=== PATIENT | male | born 1955 | race Caucasian/White ===

== ENCOUNTER 2021-06-09 13:39 | Outpatient (CLI) | payer MEDICARE, SELFPAY ==
--- NOTE | ~2021-06-09 | US_ITS ---
EXAMINATION: US carotid duplex BI DATE: 06/09/2021 14:32 INDICATION: Carotid stenosis TECHNIQUE: Grayscale, color Doppler, and pulsed Doppler images of the cervical carotid arteries were obtained. The degree of vessel stenosis is placed in one of the following categories: normal, <50%, 5 0-69%, >=70% but less than near-occlusion, near-occlusion, or total occlusion. Note that percent sten osis relative to normal distal artery lumen diameter is indirectly measured from velocity measurement s as described by Sameer, et al. Radiology 2003; 229:340-346. Notes: Normal: Peak systolic velocity <125 centimeters/sec and no plaque <50%. Peak systolic velocity <125 ( EDV <40; ICA/CCA PSV ratio <2.0; used these factors only a tandem lesions or low cardiac output or co ntralateral disease) 50-69 %: PSV 125-230 (EDV 40-100; ratio 2-4) >= 70% but less than near occlusion: PSV greater than 230 (EDV > 100; ratio> 4.0) Near Occlusion: PSV that is variable; markedly narrowed lumen Occlusion: Absent flow on color/spectral Doppler and no lumen on marcial scale. COMPARISON: None. FINDINGS: RIGHT: The right common carotid artery (CCA) peak systolic velocity (PSV) is 82 cm/s. The right internal car otid artery (ICA) PSV is 176 cm/s. The right ICA end-diastolic velocity (EDV) is 40 cm/s. The right I CA/CCA PSV ratio is 2.1. The external carotid artery (ECA) PSV is 329 cm/s. There is antegrade flow i n the right vertebral artery. LEFT: The left CCA PSV is 52 cm/s. The left ICA PSV is 292 cm/s. The left ICA EDV is 72 cm/s. The left ICA/ CCA PSV ratio is 5.6. The ECA PSV is 156 cm/s. There is antegrade flow in the left vertebral artery. IMPRESSION: 1. 50-69% stenosis in the right internal carotid artery by sonographic criteria. 2. Greater than or equal to 70% stenosis in the left internal carotid artery by sonographic criteria. Reviewed, dictated and finalized at location A. IMPRESSION: 1. 50-69% stenosis in the right internal carotid artery by sonographic criteria . 2. Greater than or equal to 70% stenosis in the left internal carotid artery by sonographic criteria.
== END 2021-06-09 13:40 | disposition home or self-care (01) ==
LOC: ANHIMG 13:51
PROVIDERS: PCP Internal Medicine; Visit Provider Internal Medicine
CPT/HCPCS: 93880

== ENCOUNTER 2022-12-18 15:12 | Outpatient (CLI) | payer MEDICARE, SELFPAY ==
--- NOTE | ~2022-12-18 | CT_ITS ---
EXAMINATION:CT lung screening DATE: 12/18/2022 15:46 INDICATION: Personal history of tobacco dependence. Current smoker with 34 pack year history. TECHNIQUE: Computed tomography (CT) of the chest was performed without intravenous contrast. Automate d exposure control and iterative reconstruction technique were employed. The dose-length product (DLP ) was 154.09 mGy-cm. COMPARISON: None. FINDINGS: There is mild emphysema. There is mild scarring at the lung apices. Calcified right lung no dules and calcified right hilar and mediastinal lymph nodes are consistent with old granulomatous dis ease. There is mild atelectasis in left lower lobe and lingula. No pleural effusion. The heart size i s normal. There are coronary artery calcifications. No pericardial effusion. Calcifications in the li cristian and spleen are consistent with old granulomatous disease. Aortic atherosclerosis is noted. There is mild thoracic spondylosis. There is mild chronic height loss of T5 and T8 vertebral bodies. IMPRESSION: 1. Lung-RADS category 2: Benign appearance or behavior. Continue annual screening with noncontrast lo w-dose chest CT in 12 months. Reviewed, dictated and finalized at location E. IMPRESSION: 1. Lung-RADS category 2: Benign appearance or behavior. Continue annual screeni ng with noncontrast low-dose chest CT in 12 months.
== END 2022-12-18 15:13 | disposition home or self-care (01) ==
PROVIDERS: PCP Internal Medicine; Visit Provider Internal Medicine
DX: Z12.2 Encounter for screening for malignant neoplasm of respiratory organs (principal); Z87.891 Personal history of nicotine dependence
CPT/HCPCS: 71271

== ENCOUNTER 2023-02-18 14:28 | Emergency (ER) | payer MEDICARE, SELFPAY ==
[2023-02-18] VITALS (19 sets, daily range): BP systolic 128–153; BP diastolic 63–91; PULSE 60–72; RESP 7–22; TEMP 36.2; O2SAT 93–99
--- NOTE | ~2023-02-18 | XR_ITS ---
EXAMINATION: XR chest 2V DATE: 02/18/2023 15:26 INDICATION: Generalized weakness TECHNIQUE: PA and lateral views of the chest are obtained. COMPARISON: 12/18/2022 FINDINGS: The lungs are free of acute opacities. No pleural effusion or pneumothorax. The cardiomedia stinal silhouette is normal. There is mild thoracic spondylosis. Calcified pulmonary nodules and calc ified right hilar and mediastinal lymph nodes are consistent with old granulomatous disease. IMPRESSION: 1. No acute cardiopulmonary abnormality. Reviewed, dictated and finalized at location L.
--- NOTE | 2023-02-18 14:34 | ECG_ITS ---
Measurements Intervals [place] Rate: 70 P: 81 NH: 147 QRS: 65 QRSD: 91 T: 49 QT: 373 QTc: 404 Interpretive Statements SINUS RHYTHM BORDERLINE ST ABNORMALITY- ANTEROLAT/INF LEADS BORDERLINE ECG NO PREVIOUS ECG AVAILABLE FOR COMPARISON Electronically Signed On 02-18-2023 15:53:46 CDT by Tae Salazar D.O.
[2023-02-18 14:50] LABS: Basophils Absolute Auto 0.1 K/mm3 (0.0-0.1); Basophils Percent Auto 0.7 % (0.2-1.2); Eosinophils Absolute Auto 0.3 K/mm3 (0-0.3); Eosinophils Percent Auto 2.7 % (0-4.4); Hematocrit 45.7 % (42.0-52.0); Hemoglobin 14.9 g/dL (14.0-18.0); Immature Granulocyte Absolute 0.03 K/mm3 (0.00-0.031); Immature Granulocyte Percent A 0.3 % (0-0.5); Lymphocytes Absolute Auto 2.21 K/mm3 (0.9-3.2); Mean Corpuscular HGB Conc 32.6 g/dl (32-36); Monocytes Percent Auto 11.1 % (2.6-8.5); Neutrophils Absolute Auto 5.6 K/mm3 (1.3-6.7); Neutrophils Percent Auto 61.2 % (45.5-73.1); Platelet Count Result 304 k/mm3 (150-375); Red Blood Count 4.81 M/mm3 (4.6-6.20); Red Cell Distribution Width 14.3 % (11.5-14.5); White Blood Count 9.2 K/mm3 (4.5-10.0)
[2023-02-18 15:02] LABS: Alanine Aminotransferase 23 U/L (6-50); Albumin Level 4.4 g/dL (3.5-5.1); Alkaline Phosphatase 67 U/L (38-126); Anion Gap 7 mmol/L (8-16); Aspartate Amino Transferase 26 U/L (17-59); Bilirubin,Total 0.7 mg/dL (0.2-1.3); Blood Urea Nitrogen 18 mg/dL (9-20); Calcium 9.3 mg/dL (8.4-10.2); Carbon Dioxide 28 mmol/L (22-30); Chloride 98 mmol/L (98-107); Estimated CRCL calculation 60 ml/min; Estimated Glomerular Filt Rate > 60; Glucose 144 mg/dL (65-110); Potassium 3.8 mmol/L (3.4-5.0); Sodium 133 mmol/L (137-145)
--- NOTE | 2023-02-18 17:22 | ED.GENADULT ---
HPI - General Adult General Chief complaint: Weakness Stated complaint: weakness Time Seen by Provider: 02/18/23 17:03 Source: patient Mode of arrival: ambulatory Limitations: no limitations History of Present Illness HPI narrative: 67-year-old male presents today with concerns of chest pain that lasted a couple minutes followed by dizziness. Patient states he was at work lifting heavy objects when the chest pain started. Chest pain was to the center of his chest felt like a pressure. Pain was not radiating down the arm and there was no diaphoresis. Dizziness lasted for about 2 hours. States he was able to drive back to work and then home. He then later decided to lay down for an afternoon nap. Dizziness resolved prior to that. He called his primary care physician today because he had concerns of having a reaction to his new medicine pantoprazole and was encouraged to come to the emergency department for further evaluation. Patient denies any other issues at this time. No other episodes of chest pain or shortness of breath since yesterday. Patient is alert and oriented x3 and neurologically intact at this time. Severity: mild Related Data Allergies Allergy/AdvReac Type Severity Reaction Status Date / Time No Known Allergies Allergy Mild Verified 09/21/09 23:53 Review of Systems Review of Systems: CONSTITUTIONAL: Denies fever, chills, or sweats. EYES: Denies visual changes, redness, or discharge. ENT: Denies rhinorrhea, congestion, sore throat, or otalgia. CARDIOVASCULAR: Denies current chest pain, palpitations, or edema. RESPIRATORY: Denies cough or dyspnea. GASTROINTESTINAL: Denies abdominal pain, nausea, vomiting, or diarrhea. GENITOURINARY: Denies dysuria or hematuria. SKIN: Denies rash or itching. MUSCULOSKELETAL: Denies back pain, joint pain, or myalgia. NEUROLOGIC: Denies current headache, numbness, dizziness, or weakness. PSYCHIATRIC: Denies anxiety or depression. [facility] Family History Family History (Updated 07/04/18 @ 12:22 by DOCTOR UNKNOWN) Father Family history of malignant neoplasm Mother Family history of congestive heart failure Other Hypertension Social History Social History Smoking status: Current every day smoker Alcohol intake: current Exam Narrative: GENERAL: Well-appearing, well-nourished, and in no acute distress. HEAD: Normocephalic, atraumatic. EYES: PERRLA and EOMI. NECK: Supple. No adenopathy or masses. CHEST: Clear to auscultation. No respiratory distress. No wheezes rales or rhonchi HEART: Regular rate and rhythm. No murmur heard. Normal peripheral pulses. ABDOMEN: Soft, nontender, nondistended, normal active bowel sounds. EXTREMITIES: Normal range of motion. No edema. SKIN: Warm, dry, no rash. NEURO: No focal deficits. Alert and oriented x3. PSYCH: Normal mood and affect. Course Course Emergency Course: Patient updated on all labs. Neurologically he is intact and is had no other symptoms since yesterday. He is aware that he will be discharged home with plan follow-up with primary care and to come back with any new or worsening concerns. Vital Signs Vital signs: Vital Signs Temperature 97.2 F L 02/18/23 14:31 Pulse Rate 72 02/18/23 14:31 Respiratory Rate 16 02/18/23 14:31 Blood Pressure 149/63 H 02/18/23 14:31 Pulse Oximetry 97 02/18/23 14:31 Oxygen Delivery Room Air 02/18/23 14:31 Temperature 97.2 F L 02/18/23 14:31 Pulse Rate 70 02/18/23 18:16 Respiratory Rate 18 02/18/23 18:16 Blood Pressure 131/91 H 02/18/23 18:15 Pulse Oximetry 94 02/18/23 18:16 Oxygen Delivery Room Air 02/18/23 14:31 Medical Decision Making MDM Narrative Medical decision making narrative: 67-year-old male HPI as noted. Differentials noted below. Work-up to include CBC, CMP, troponin, EKG, chest x-ray. CBC without any concerning findings CMP did show sodium of 133 and a glucose of 144 nothing else conc
[2023-02-18] MEDS: SODIUM CHLORIDE 0.9% IV 1,000 ML 999 ML IV CONT (17:24)
[2023-02-18 17:47] LABS: Troponin I < 0.012 ng/mL (0.000-0.034)
== END 2023-02-18 19:29 | disposition home or self-care (01) ==
PROVIDERS: Emergency Medicine; Emergency Provider Nurse Practitioner Family; PCP Internal Medicine
DX: R42 Dizziness and giddiness (principal); R07.9 Chest pain, unspecified; F17.200 Nicotine dependence, unspecified, uncomplicated
CPT/HCPCS: 36415; 71046; 80053; 84484; 85025; 93005; 96360; 99284; J7030

== ENCOUNTER 2023-02-22 11:00 | Outpatient (CLI) | payer MEDICARE, SELFPAY ==
--- NOTE | ~2023-02-22 | US_ITS ---
EXAMINATION: US carotid duplex BI DATE: 02/22/2023 11:51 INDICATION: Carotid artery stenosis. TECHNIQUE: Grayscale, color Doppler, and pulsed Doppler images of the cervical carotid arteries were obtained. The degree of vessel stenosis is placed in one of the following categories: normal, <50%, 5 0-69%, >=70% but less than near-occlusion, near-occlusion, or total occlusion. Note that percent sten osis relative to normal distal artery lumen diameter is indirectly measured from velocity measurement s as described by Sameer, et al. Radiology 2003; 229:340-346. COMPARISON: Ultrasound 06/09/2021 FINDINGS: RIGHT: The right common carotid artery (CCA) peak systolic velocity (PSV) is 93 cm/s. The right internal car otid artery (ICA) PSV is 139 cm/s. The right ICA end-diastolic velocity (EDV) is 23 cm/s. The right I CA/CCA PSV ratio is 1.5. Grayscale and color Doppler images yield an estimate of >=50% diameter reduc tion from plaque in the ICA. There is antegrade flow in the right vertebral artery. LEFT: The left CCA PSV is 118 cm/s. The left ICA PSV is 166 cm/s. The left ICA EDV is 46 cm/s. The left ICA /CCA PSV ratio is 1.4. Grayscale and color Doppler images yield an estimate of >=50% diameter reducti on from plaque in the ICA. There is antegrade flow in the left vertebral artery. IMPRESSION: 1. 50-69% stenosis in the right internal carotid artery. 2. 50-69% stenosis in the left internal carotid artery. Reviewed, dictated and finalized at location A.
== END 2023-02-22 11:01 | disposition home or self-care (01) ==
PROVIDERS: PCP Internal Medicine; Visit Provider Internal Medicine
DX: I65.23 Occlusion and stenosis of bilateral carotid arteries (principal)
CPT/HCPCS: 93880

== ENCOUNTER 2023-08-16 10:04 | Outpatient (CLI) | payer MEDICARE, SELFPAY ==
--- NOTE | 2023-08-16 12:53 | P.PCNPFT_ITS ---
PFT Procedure Performed PFT Procedure Performed Plethysmography (Lung Vol) Diffusing Cap (DLCO) Flow Vol Loop Spirometry w/o Bronchodil PFT Interpretation This is a pulmonary function test with spirometry, plethysmography and diffusing capacity. The test was performed and results interpreted in accordance with the 2019 and 2005 ATS/ERS Task Force guidelines respectively using the Global Lung Function Initiative-2012 reference equations. Patient demonstrated good effort and cooperation. Reproducibility criteria were met. The quality of the spirometry maneuver was Grade A. Findings: Spirometry: There is decreased maximal expiratory airflow at all lung volumes. The contour the inspiratory flow tracing is normal. The FVC is 3.38 L, 77% predicted. The FEV1 is 1.34 L, 40% predicted. The FEV1: FVC ratio is 40%. Plethysmography: The total lung capacity is 6.78 L, 96% predicted. The functio nal residual capacity is 4.56 L, 123% predicted. The residual volume is 3.40 L, 142% predicted. The residual volume: Total lung capacity ratio is 50%. Diffusing capacity: The diffusing capacity unadjusted for hemoglobin and carboxyhemoglobin is 11.9, 44% predicted. The diffusing capacity adjusted for alveolar volume is 2.57, 64% predicted. Impression: There is a severe obstructive abnormality. The increase in residual volume to total lung volume ratio is consistent with hyperinflation from an obstructive abnormality. The diffusing capacity unadjusted for hemoglobin and carboxyhemoglobin is moderately decreased and remains mildly decreased when adjusted for alveolar volume. There are no prior studies for comparison
== END 2023-08-16 10:05 | disposition home or self-care (01) ==
LOC: ANHPFT 10:05
PROVIDERS: PCP Internal Medicine; Visit Provider Internal Medicine
DX: R06.00 Dyspnea, unspecified (principal); R94.2 Abnormal results of pulmonary function studies
CPT/HCPCS: 94375; 94726; 94729

== ENCOUNTER 2023-09-30 12:36 | Inpatient (IN) | payer MEDICARE, SELFPAY ==
[2023-09-30] VITALS (13 sets, daily range): BP systolic 104–156; BP diastolic 64–77; PULSE 67–100; RESP 16–24; TEMP 35.6–36.4; O2SAT 70–100
--- NOTE | ~2023-09-30 | XR_ITS ---
EXAMINATION: XR chest ET placement, XR abdomen gastric tube insert DATE: 09/30/2023 15:40 INDICATION: Endotracheal tube placement. Orogastric tube insertion. TECHNIQUE: 1. Portable supine AP view of the chest was obtained on 2 radiographs. 2. Portable AP view of the abdomen and lower chest was obtained on a single radiograph. COMPARISON: Chest radiograph dated 09/30/23 FINDINGS: Chest : Endotracheal tube tip just below level of the thoracic inlet, 8.9 cm above the michael. Diffuse ground glass opacities and increased interstitial pattern throughout both lungs with right perihilar predomi nance. There also peripheral Rusty B-lines predominantly along the lateral right mid and lower lung zones consistent with mild moderate right-sided predominant pulmonary edema. Blunting at the left cos tophrenic angle which appears to correspond to some pleural-parenchymal scarring on the prior CT. The re is also a unilateral small calcified pleural plaque at the posterior left lower lobe which suggest s disruption sequela of a chronic exudative effusion of indeterminate etiology. The cardiomediastinal silhouette is normal. Abdomen: Nasogastric tube tip in proximal side port in the body of the stomach. There are some gas and stool i n the visualized transverse colon. No dilated loops of gas-filled bowel in the visualized abdomen. IMPRESSION: 1. Endotracheal tube tip 8.9 cm above the michael. Recommend advancement by 6 cm. 2. Nasogastric tube tip in proximal side port in the body of the stomach. 3. Somewhat asymmetric mild left-sided and moderate right-sided diffuse pulmonary edema. Reviewed, dictated and finalized at location A. TRICIAN DECK IMPRESSION: 1. Endotracheal tube tip 8.9 cm above the michael. Recommend advancement by 6 cm . 2. Nasogastric tube tip in proximal side port in the body of the stomach. 3. Somewhat asymmetric mild left-sided and moderate right-sided diffuse pulmona ry edema.
--- NOTE | ~2023-09-30 | CT_ITS ---
EXAMINATION: CTA chest DATE: 09/30/2023 13:11 INDICATION: Chest pain TECHNIQUE: Computed tomographic angiography (CTA) of the chest was performed without and with 100 mL Omnipaque-350 intravenous contrast. Volume-rendered 3D-reconstructions of the aorta and large arterie s were constructed by the technologist on a separate workstation. Automated exposure control and iter ative reconstruction technique were employed. The dose-length product was 849.92 mGy-cm. COMPARISON: None. FINDINGS: Mild biapical pleural-parenchymal scarring. Mild emphysema. There are groundglass opacities with mini mal amount of associated smooth septal line thickening in both lungs most prominent in the dependent aspect of the right lower lobe and to lesser degree in the dependent aspect of the left lower and elisabet ateral upper lobes and more anteriorly right middle lobe and would favor mild pulmonary edema over pn eumonia or other chronic interstitial lung disease. No pleural effusion. Calcified nodules in the rig ht lung and calcified right hilar lymph nodes consistent with old granulomatous disease. Heart size i s normal. Scattered atherosclerotic coronary artery calcifications. No pericardial effusion. Thoracic aorta and the great vessels arising from the arch are normal in caliber with scattered nonhemodynami cale significant atherosclerotic plaque and no dissection. There is poor contrast opacification of t he pulmonary arteries with no evident pulmonary embolism through at least the lobar pulmonary arterie s. No pathologically enlarged thoracic lymphadenopathy. Multiple hepatic and splenic calcifications c onsistent with old granulomatous disease. There is calcified atherosclerosis of the aorta and many of the other arteries. Visualized upper abdomen is otherwise unremarkable. Mild thoracic spondylosis wi th chronic appearing mild compression fractures with superior endplate Schmorl's nodes at T5 and T8. IMPRESSION: 1. Dependent predominant opacities in both lungs most consistent with mild pulmonary edema. Pneumonia or interstitial lung disease considered significantly less likely. 2. Atherosclerotic aorta and great vessels arising from the arch with no aneurysm or dissection. Reviewed, dictated and finalized at location A. S REVIEW NURSE IMPRESSION: 1. Dependent predominant opacities in both lungs most consistent with mild pulm onary edema. Pneumonia or interstitial lung disease considered significantly le ss likely. 2. Atherosclerotic aorta and great vessels arising from the arch with no aneury sm or dissection.
--- NOTE | 2023-09-30 12:41 | ECG_ITS ---
Measurements Intervals [place] Rate: 91 P: 75 NH: 159 QRS: 18 QRSD: 87 T: 47 QT: 333 QTc: 410 Interpretive Statements SINUS RHYTHM POSSIBLE LEFT ATRIAL ENLARGEMENT [-0.1mV P WAVE IN V1/V2] SEPTAL MYOCARDIAL INFARCTION , OF INDETERMINATE AGE [40+ ms Q WAVE IN V1/V2] ST ELEVATION IN AVR, V1 AND V2, CONSIDER ISCHEMIA MARKED ST DEPRESSION, CONSIDER SUBENDOCARDIAL INJURY [0.2+ mV ST DEPRESSION] COMPARED TO ECG 02/18/2023 14:37:32 ST CHANGES NOW PRESENT Electronically Signed On 09-30-2023 13:33:38 TESTING DIRECTOR by Shannon Davis M.D.
--- NOTE | 2023-09-30 12:45 | ED.CHESTPAIN ---
HPI - Chest Pain General Chief Complaint: Chest Pain Stated Complaint: chest pain/dyspnea Time Seen by Provider: 09/30/23 12:45 History of Present Illness HPI narrative: patient is a 68-year-old male who presents ER with chest pain and shortness of breath. Chest pain began last night and was aching in his chest moving in between his shoulder blades into his left shoulder. Is been more constant today. In route he has started becoming more short of breath and developed hypoxia for EMS. Denies history of MT in the past. No alleviating factors for his discomfort. STEMI activated upon receipt of EKG. Related Data Home Medications Medication Instructions Recorded Confirmed amlodipine 10 mg tablet 10 mg PO DAILY 09/30/23 09/30/23 lisinopril 40 mg tablet 40 mg PO DAILY 09/30/23 09/30/23 metoprolol succinate 100 mg 100 mg PO DAILY 09/30/23 09/30/23 tablet,extended release 24 hr pantoprazole 40 mg tablet,delayed 40 mg PO BID 09/30/23 09/30/23 release Allergies Allergy/AdvReac Type Severity Reaction Status Date / Time No Known Allergies Allergy Mild Verified 09/30/23 13:42 Review of Systems Review of Systems: Limited due to severity of patient's clinical illness and then progression to endotracheal intubation. ROS unobtainable: Yes unobtainable due to endotracheal tube Constitutional: Constitutional: Reports fatigue Cardiovascular: Cardiovascular: Reports chest pain Respiratory: Respiratory: Denies cough, Reports dyspnea and Denies wheezing PMFSH Past Medical History Medical History (Updated 09/30/23 @ 18:52 by Clif Siegel MD) COPD (chronic obstructive pulmonary disease) Essential hypertension Mixed hyperlipidemia Family History Family History Father Family history of malignant neoplasm Mother Family history of congestive heart failure Other Hypertension Social History Social History Smoking packs per day: 0.25 Smoking cigarettes per day: 5.0 Smoking status: Light tobacco smoker Alcohol intake: current Substance use: never Spiritual care concerns: No Exam Narrative: GENERAL: Ill-appearing, well-nourished, and in mopderat distress. HEAD: Normocephalic, atraumatic. EYES: PERRL and EOMI. ENT: Mucous membranes moist. NECK: Supple. CHEST: Clear to auscultation. No respiratory distress. HEART: Regular rate and rhythm. Normal peripheral pulses. ABDOMEN: Soft, nontender, nondistended. EXTREMITIES: Normal range of motion. No edema. SKIN: Warm, dry, dusky skin color. NEURO: Alert and oriented x3. PSYCH: Normal mood and affect. Course Course Emergency Course: STEMI activated. Patient with persistent hypoxia. Will go to CT for emergent CTA they ordered rule out dissection. We will then determine should if he needs intubation as he is oriented x3 and does not seem to be in true respiratory distress at this time. 1310: Patient very short of breath during CT scan in the patient room. He is reporting increased shortness of breath. He will be intubated prior to going to the recyclable materials collector. Vital Signs Vital signs: Vital Signs Temperature 97.5 F L 09/30/23 12:34 Pulse Rate 93 09/30/23 12:34 Respiratory Rate 20 09/30/23 12:34 Blood Pressure 104/66 09/30/23 12:34 Pulse Oximetry 70 L 09/30/23 12:34 Oxygen Delivery Room Air 09/30/23 12:34 Temperature 96.1 F L 09/30/23 16:00 Pulse Rate 67 09/30/23 18:20 Respiratory Rate 21 H 09/30/23 18:20 Blood Pressure 135/70 09/30/23 18:20 Pulse Oximetry 96 09/30/23 18:20 Oxygen Delivery Mechanical Ventilation 09/30/23 18:00 Oxygen Flow Rate 2 09/30/23 12:40 Fraction of Inspired Oxygen 80 09/30/23 16:48 Procedures Intubation Intubation #1: Intubation Date: 09/30/23 Intubation Time: 13:15 Time out performed: Yes sedative: Etomi
--- NOTE | 2023-09-30 12:47 | PC.NURSE ---
STEMI DECLARED BY DR CURTIS. DR TO BEDSIDE TO EVAL PT
--- NOTE | 2023-09-30 12:47 | PC.NURSE ---
[address] Davis notified [address] [place] 1248 [facility] notified
--- NOTE | 2023-09-30 12:50 | PC.NURSE ---
PT TAKEN EMERGENTLY TO CT AND BACK. DR CURTIS NOW WANTS TO INTUBATE PT PRIOR TO CHAIR INSPECTOR AND LEVELER DUE TO RESP STATUS. SETTING UP EQUIPMENT NOW.
[2023-09-30 13:02] LABS: Basophils Absolute Auto 0.1 K/mm3 (0.0-0.1); Basophils Percent Auto 0.6 % (0.2-1.2); Eosinophils Percent Auto 0.5 % (0-4.4); Hematocrit 40.1 % (42.0-52.0); Hemoglobin 13.1 g/dL (14.0-18.0); Immature Granulocyte Absolute 0.06 K/mm3 (0.00-0.031); Immature Granulocyte Percent A 0.7 % (0-0.5); Lymphocytes Absolute Auto 1.13 K/mm3 (0.9-3.2); Mean Corpuscular HGB Conc 32.7 g/dl (32-36); Mean Corpuscular Hemoglobin 30.8 pg (26-34); Mean Corpuscular Volume 94.1 fl (80-100); Mean Platelet Volume 10.1 fl (7.4-10.4); Monocytes Absolute Auto 1.5 K/mm3 (0.1-0.6); Monocytes Percent Auto 18.9 % (2.6-8.5); Neutrophils Absolute Auto 5.3 K/mm3 (1.3-6.7); Neutrophils Percent Auto 65.3 % (45.5-73.1); Platelet Count Result 240 k/mm3 (150-375); Red Blood Count 4.26 M/mm3 (4.6-6.20); White Blood Count 8.1 K/mm3 (4.5-10.0)
[2023-09-30 13:02] LABS: Estimated CRCL calculation 50 ml/min; Estimated Glomerular Filt Rate 55
--- NOTE | 2023-09-30 13:10 | PC.NURSE ---
DR CURTIS, RT AND RN X2 AT BEDSIDE FOR INTUBATION.
[2023-09-30 13:12] LABS: Alanine Aminotransferase 21 U/L (6-50); Albumin Level 4.3 g/dL (3.5-5.1); Alkaline Phosphatase 67 U/L (38-126); Anion Gap 10 mmol/L (8-16); Aspartate Amino Transferase 41 U/L (17-59); Bilirubin,Total 0.4 mg/dL (0.2-1.3); Blood Urea Nitrogen 20 mg/dL (9-20); Calcium 9.2 mg/dL (8.4-10.2); Carbon Dioxide 21 mmol/L (22-30); Chloride 94 mmol/L (98-107); Estimated CRCL calculation 54 ml/min; Estimated Glomerular Filt Rate 60; Glucose 114 mg/dL (65-110); Lipase 103 U/L (23-300); Potassium 4.3 mmol/L (3.4-5.0); Sodium 125 mmol/L (137-145)
--- NOTE | 2023-09-30 13:14 | PC.NURSE ---
30MG ETOMIDATE GIVEN IVP TO L HAND 100MG SUCC GIVEN IVP TO L HAND
[2023-09-30 13:16] LABS: INR 0.9; Prothrombin Time 12.9 Seconds (11.1-14.7)
--- NOTE | 2023-09-30 13:16 | PC.NURSE ---
7.5 ETT 21@LIP +COLOR CHANGE, BILATERAL BREATH SOUNDS NOTED.
[2023-09-30] MEDS: RAPID SEQUENCE INTUBATION KIT 1 EACH (13:18)
[2023-09-30 13:20] LABS: Cholesterol 171 mg/dL (0-200); HDL Direct 57 mg/dL; Triglycerides 105 mg/dL (<150)
[2023-09-30] MEDS: PROPOFOL IV EMULSION 100 ML 2.64 MG IV CONT (13:20)
[2023-09-30 13:31] LABS: LDL Cholesterol Direct 53 mg/dL
--- NOTE | 2023-09-30 13:37 | SUR.OPER ---
critical troponin of 1.[address] cochran at 1335. no new orders at this time
[2023-09-30 13:49] LABS: Alveolar/Arterial O2 Gradient 622.8 mmHg; Base Excess ABG -6.8 mEq/l (+/-2.0); Carboxyhemoglobin 1.6 % THb (0-2.0); Fractional Inspired Oxygen 100 %; Methemoglobin ABG 0.2 %THb (0-1.5); Oxygen Content ABG 15.9 %vol (16.0-22.0); PCO2 ABG 39.1 mmHg (35.0-45.0); PO2 ABG 51.1 mmHg (80.0-100.0); PO2 FiO2 Ratio Arterial Blood 0.51 %; Reduced Hemoglobin 17.8 %THb (0-5.0); Total Hemoglobin 14.1 g/dL (12.0-18.0); pH ABG 7.304 (7.350-7.450)
[2023-09-30 13:50] LABS: Triglycerides 113 mg/dL (<150)
[2023-09-30 13:50] LABS: Oxygen Saturation ABG 82.9 % (95.0-100.0)
[2023-09-30 13:51] LABS: Device NON-REBREATHER MASK; Modified Allen's Test Pass; Oxyhemoglobin 80.4 % THb (90.0-100.0); Site Drawn RIGHT RADIAL
[2023-09-30] MEDS: HEPARIN SOD/D5W 100 UNITS/ML 25,000 UNITS/250 ML BAG 12 UNITS IV CONT (14:00)
--- NOTE | 2023-09-30 14:35 | PCCCNOTE ---
STEMI called in ER. No family present at this time. Call placed to sister Alida who, as well as pt's son, are on their way here. They were met in the lobby and taken to the ICU waiting room. Nuclear Medicine Tech has spoke to Alida and told her pt will need to be transferred to [facility] for treatment. Staff aware family is here.
--- NOTE | 2023-09-30 14:40 | PM.IMHP ---
H&P: HPI History of Present Illness Date/Time: 09/30/23 14:40 Chief Complaint: Chest pain Narrative: Patient is a 68 year old male with tobacco dependence who presented with chest pain ongoing since yesterday, along with shortness of breath. EKG obtained upon ER arrival showed ST elevation in AVR and V1 with diffuse ST depressions. porcelain enamel laborer was activated. Patient was noted to be quite hypoxic into the 80s. CTA negative for PE or dissection. Given ongoing chest pain and EKG findings, we decided to urgently take patient to laborer/key man. Patient had difficulty laying flat for CT scan due to shortness of breath, so he was electively intubated for cardiac cath. Additional history obtained from the patient's sister and the patient's son after cardiac cath: Smoking since his teens. Has hypertension, on Amlodipine, Lisinopril, Metoprolol. Has been having issues with acid reflux the past few months. PFTs done in August 2023 here at [place] show severe obstructive abnormality. The increase in residual volume to total lung volume ratio is consistent with hyperinflation from an obstructive abnormality. The diffusing capacity unadjusted for hemoglobin and carboxyhemoglobin is moderately decreased and remains mildly decreased when adjusted for alveolar volume. Prior EKG in our system from February 2023 shows sinus rhythm, borderline ST abnormality in the anterolateral/inferior leads. Review of Systems Review of Systems: All systems reviewed & are unremarkable except as noted in HPI and below (HPI) [facility] Family History Family History Father Family history of malignant neoplasm Mother Family history of congestive heart failure Other Hypertension Social History Social History Smoking packs per day: 0.25 Smoking cigarettes per day: 5.0 Smoking status: Light tobacco smoker Alcohol intake: current Substance use: never Spiritual care concerns: No Meds Home Medications and Allergies Home Medications Medication Instructions Recorded Confirmed Type amlodipine 10 mg tablet 10 mg PO DAILY 09/30/23 09/30/23 History lisinopril 40 mg tablet 40 mg PO DAILY 09/30/23 09/30/23 History metoprolol succinate 100 mg 100 mg PO DAILY 09/30/23 09/30/23 History tablet,extended release 24 hr pantoprazole 40 mg tablet,delayed 40 mg PO BID 09/30/23 09/30/23 History release Allergies Allergy/AdvReac Type Severity Reaction Status Date / Time No Known Allergies Allergy Mild Verified 09/30/23 13:42 Vital Signs Vital Signs - 24 hr 09/30/23 12:34 09/30/23 12:37 09/30/23 12:40 Temperature 36.4 C L Pulse Rate 93 Respiratory Rate 20 Blood Pressure 104/66 Pulse Oximetry 70 L 94 94 Oxygen Delivery Room Air Nasal Cannula Nasal Cannula Oxygen Flow Rate 2 2 09/30/23 13:20 09/30/23 13:08 Temperature Pulse Rate 90 100 Respiratory Rate 16 16 Blood Pressure 108/64 Pulse Oximetry 98 Oxygen Delivery Oxygen Flow Rate Exam Const: General: in distress mild HENMT: Mouth: Yes moist mucous membranes Eyes: General: appearance normal, both eyes and all related structures Sclera: sclerae normal Resp: Other: Mildly labored breathing Cardio: Rate: tachycardic Rhythm: regular rhythm Heart sounds: no murmurs Neuro: Speech: normal speech Psych: Mental Status: mental status grossly normal Affect: normal affect H&P: Results Labs Labs: Short CBC 09/30/23 Range/Units 12:54 WBC 8.1 (4.5-10.0) K/mm3 Hgb 13.1 L (14.0-18.0) g/dL Hct 40.1 L (42.0-52.0) % Plt Count 240 (150-375) k/mm3 [facility] 09/30/23 09/30/23 12:53 13:01 Sodium 125 L Potassium 4.3 Chloride 94 L Carbon Dioxide 21 L BUN 20 Creatinine 1.20 1.30 Glucose 114 H Calcium 9.2 Cardiac Enzymes 09/30/23 Range/Units 12:53 Troponin I 1.720 H* (0.000-0.034) n
--- NOTE | 2023-09-30 15:00 | ADMGEN ---
This patient, Tremaine Flores, was admitted to Intensive Care Unit-3. Patient/family oriented to hospital policies and general routines including ID bracelet, bed and alarms, visiting hours, pain management, procedures, bathroom and other care routines, personal items, smoking policy, room service/diet, and visiting hours. Information on how to activate the Rapid Response Team has been discussed. Patient/Family are encouraged to report perceived risks to care and to ask questions if they do not understand what they are told or what they should do.
--- NOTE | 2023-09-30 15:23 | WPDCNINT ---
Assessment and Plan Assessment and plan (1) ST elevation (STEMI) myocardial infarction: Code(s): I21.3 - ST elevation (STEMI) myocardial infarction of unspecified site Status: Acute Assessment and Plan: 09/30: Patient presented with chest pain that started yesterday, associated nausea and shortness of breath. EKG showed ST elevations in AVR and V1 with diffuse ST depressions. Code STEMI was activated. Patient was very hypoxic in the 70% and 80% range, CTA was negative for PE or dissection. Patient was taken to the cardiac laboratory apparatus glass blower where was found to have a heavily diseased left main. No intervention was performed, intra-aortic balloon pump was inserted and patient will be transferred to a tertiary care center for cardiothoracic evaluation -continue intra-aortic balloon pump -continue heparin infusion (2) Acute respiratory failure: Code(s): J96.00 - Acute respiratory failure, unspecified whether with hypoxia or hypercapnia Status: Acute Assessment and Plan: Acute respiratory failure likely related to pulmonary edema as seen on CTA -09/30: Intubated in the ER -continue CMV mode of ventilation, currently on peep of 5 and 100% FiO2. Will increase PEEP to 8 -will check post intubation gases and will adjust ventilator accordingly -will check chest x-ray post intubation for ET tube placement -will start bronchodilators -sedated with fentanyl and Versed infusion, maintain RASS of 0 to -2 (3) Shock: Code(s): R57.9 - Shock, unspecified Status: Acute Assessment and Plan: Shock aside likely related to acute myocardial infarction -currently on Levophed, will maintain MAP > 65 mmHg for adequate end organ perfusion -patient also has pulmonary edema on chest CTA -cannot diurese patient due to hypotension and on pressors -will increase PEEP on the mechanical ventilator to 8 -intra-aortic balloon pump to assist with blood pressures in shock -cardiology following (4) Essential hypertension: Code(s): I10 - Essential (primary) hypertension Status: Acute Assessment and Plan: Patient history of essential hypertension, currently on vasopressors, (5) Tobacco use: Code(s): Z72.0 - Tobacco use Status: Acute Assessment and Plan: History of tobacco use, will have to assessment counselor him on tobacco cessation once he is extubated (6) COPD (chronic obstructive pulmonary disease): Code(s): J44.9 - Chronic obstructive pulmonary disease, unspecified Status: Acute Assessment and Plan: Continue bronchodilators for now. He is currently on mechanical vent Plan DVT prophylaxis: Heparin infusion Stress ulcer prophylaxis: Protonix Nutrition: NPO Code Status: Full code Critical Care Time Spent: 47 minutes Due to a high probability of clinically significant, life threatening deterioration, the patient required my highest level of preparedness to intervene emergently and I personally spent this critical care time directly and personally managing the patient. This critical care time included obtaining a history; examining the patient; pulse oximetry; ordering and review of studies; arranging urgent treatment with development of a management plan; evaluation of patient's response to treatment; frequent reassessment; and discussions with other providers. It was exclusive of separately billable procedures and treating other patients and teaching time. Please see Assessment and Plan section and the rest of the note for further information on patient assessment and treatment This dictation may have been done utilizing a voice recognition system. Attempts have been made to correct errors. However, there may be uncorrected grammatical, spelling, and recognitions errors present. Cold Rolling Machine Setter Consult Note Consult date: 09/30/23 Reason for consult: ST-elevation AR status post coronary angiogram, heavily diseased left main coronary artery , no intervention was performed,
[2023-09-30] MEDS: fentaNYL CITRATE INJ (*CRX) 100 MCG/2 ML VIAL 50 MCG IV PUSH (15:51)
[2023-09-30] MEDS: MIDAZOLAM 100MG/NS 100ML(*CRX) 100 MG/100 ML BAG IV CONT (15:52)
[2023-09-30] MEDS: FENTANYL 2,500MCG/NS250ML(*CRX 2,500 MCG/250 ML BAG 12.5 MCG IV CONT (15:53)
[2023-09-30] MEDS: PANTOPRAZOLE SODIUM IV 40 MG VIAL IV PUSH (16:04)
--- NOTE | 2023-09-30 16:08 | ECG_ITS ---
Measurements Intervals [place] Rate: 70 P: 84 OK: 178 QRS: 57 QRSD: 86 T: 73 QT: 391 QTc: 423 Interpretive Statements SINUS RHYTHM POSSIBLE LEFT ATRIAL ENLARGEMENT [-0.1mV P WAVE IN V1/V2] PREVIOUS ANTERIOR RI NONSPECIFIC ST SEGMENT ABNORMALITY ABNORMAL ECG COMPARED TO ECG 09/30/2023 12:42:[address] SEGMENT DEPRESSION IS SIGNIFICANTLY IMPROVED, LOSS OF R-WAVE VOLTAGE V3 AND V4 Electronically Signed On 10-01-2023 12:22:28 TILE MECHANIC HELPER by Steve Aguilar M.D.
[2023-09-30 16:13] LABS: Lactic Acid Reflex 1.2 mmol/L (0.7-2.0)
[2023-09-30 16:20] LABS: Alveolar/Arterial O2 Gradient 432.6 mmHg; Fractional Inspired Oxygen 100 %; HCO3 ABG 20.6 mEq/l (22.0-26.0); Oxygen Content ABG 19.8 %vol (16.0-22.0); Oxygen Saturation ABG 99.3 % (95.0-100.0); Oxyhemoglobin 97.9 % THb (90.0-100.0); PCO2 ABG 49.4 mmHg (35.0-45.0); PO2 FiO2 Ratio Arterial Blood 2.31 %
[2023-09-30 16:23] LABS: Device VENTILATOR; Site Drawn LEFT RADIAL; pH ABG 7.238 (7.350-7.450)
[2023-09-30 16:24] LABS: Arterial Blood Gas PEEP 5 cmH2O; Arterial Blood Gas Tidal Volume 500 ml; Arterial Blood Gas Vent Mode CMV; Arterial Blood Gas Ventilator rate 18 /MIN
[2023-09-30 16:37] LABS: Influenza A QL RT-PCR Negative (Negative); Influenza B QL RT-PCR Negative (Negative); RSV RNA, RT-PCR Negative (Negative); SARS-CoV-2 RNA PCR Positive (Negative)
--- NOTE | 2023-09-30 16:37 | WPDMODSED ---
Moderate Sedation Note-Pt Data Patient Data Diagnosis: Acute coronary syndrome Present Complaint: Acute coronary syndrome Procedure to be performed/Plan: Coronary angiography, left heart cath, +/- PCI Allergies Allergy/AdvReac Type Severity Reaction Status Date / Time No Known Allergies Allergy Mild Verified 09/30/23 13:42 Home Medications Medication Instructions Recorded Confirmed Type amlodipine 10 mg tablet 10 mg PO DAILY 09/30/23 09/30/23 History lisinopril 40 mg tablet 40 mg PO DAILY 09/30/23 09/30/23 History metoprolol succinate 100 mg 100 mg PO DAILY 09/30/23 09/30/23 History tablet,extended release 24 hr pantoprazole 40 mg tablet,delayed 40 mg PO BID 09/30/23 09/30/23 History release Current Medications: Active Medications Albuterol (Albuterol Sulfate Neb 2.5 Mg/3 Ml Inh) 2.5 mg INHALATION Q6HRT ABDIFATAH Aspirin (Aspirin 81 Mg Enteric Tablet) 81 mg PO QAM ABDIFATAH Atorvastatin Calcium (Atorvastatin 40 Mg Tablet) 80 mg PO DAILY [facility] Heparin Sodium (Porcine) (Heparin Sodium 5,000 Units/Ml Vial) 4,000 units IV PUSH PRN PRN PRN Reason: aPTT less than 55 seconds Heparin Sodium (Porcine) (Heparin Sodium 5,000 Units/Ml Vial) 3,000 units IV PUSH PRN PRN PRN Reason: aPTT 55 - 70 seconds Propofol (Diprivan) 100 mls @ 2.637 mls/hr IV CONT .[id number] [facility]; Protocol Stop: 10/02/23 03:12 Last Admin: 09/30/23 13:20 Dose: 5 mcg/kg/min, 2.64 mls/hr Fentanyl Citrate (Fentanyl 2,500 Mcg/Ns 250 Ml) 2,500 mcg in 250 mls @ 12.5 mls/hr IV CONT .Q20H ABDIFATAH; Protocol Last Admin: 09/30/23 15:53 Dose: 125 mcg/hr, 12.5 mls/hr Midazolam HCl (Versed 100 Mg/Ns 100 Ml) 100 mg in 100 mls @ 5 mls/hr IV CONT .Q20H ABDIFATAH; Protocol Last Admin: 09/30/23 15:52 Dose: 5 mg/hr, 5 mls/hr Propofol (Diprivan) 100 mls @ 26.37 mls/hr IV CONT .Q3H48M ABDIFATAH; Protocol Heparin Sodium/Dextrose (Heparin Sodium/D5w 100 Units/Ml) 25,000 units in 250 mls @ 12 mls/hr IV CONT .H43N76M ABDIFATAH; Protocol Norepinephrine Bitartrate (Levophed 8 Mg/D5w 250 Ml) 8 mg in 250 mls @ 22.5 mls/hr IV CONT .Q11H7M ABDIFATAH; Protocol Ipratropium [place] (Ipratropium Br 0.02% Inh Soln 0.5 Mg/2.5 Ml Vial) 0.5 mg INHALATION Q6HRT ABDIFATAH Multi-Ingred Cream/Lotion/Oil/Oint (Mineral Oil/White Petrolatum Ointment) 1 applic EACH EYE Q12HR ABDIFATAH Pantoprazole Sodium (Pantoprazole Sodium Iv 40 Mg Vial) 40 mg IV PUSH QAM ABDIFATAH Perflutren Lipid Microsphere (Perflutren Lipid Microspheres 1.5 Ml Vial Diluted To 10 Ml Total Volume) 0 ml IV PUSH ONCE PRN; Protocol PRN Reason: adequate visualization Stop: 10/03/23 16:19 Sodium Chloride (Central Line Flush) 10 ml IV PUSH Q8HR ABDIFATAH Sodium Chloride (Central Line Flush) 20 ml IV PUSH PRN PRN PRN Reason: after blood draws Sedation/Anesthesia: No previous sedation/anesthesia problems (including family history). [facility] Family History Family History Father Family history of malignant neoplasm Mother Family history of congestive heart failure Other Hypertension Social History Social History Smoking packs per day: 0.25 Smoking cigarettes per day: 5.0 Smoking status: Light tobacco smoker Alcohol intake: current Substance use: never Spiritual care concerns: No Mod Sed Physical Exam Physical Exam Pre Procedural Exam: Normal: Heart Rate, Heart Rhythm and Skin and Variation: Appearance (Intubated ) and Neuro Exam (Sedated) Hours since solid foods: 0 Hours since liquid intake: 0 Mallampati Classification: class III Internal Medicine - PN: Obj Da Vital Signs Vital Signs: Vital Signs - 24 hr 09/30/23 12:34 09/30/23 12:37 09/30/23 12:40 Temperature 36.4 C L Pulse Rate 93 Respiratory Rate 20 Blood Pressure 104/66 Pulse Oximetry 70 L 94 94 Oxygen Delivery Room Air Nasal Cannula Nasal Cannula Oxygen Flow Rate 2 2 Fraction of Inspired Oxygen 09/30/23 13:20 09/30/23 13:08 09/30/23 13
[2023-09-30] MEDS: ALBUTEROL SULFATE NEB 2.5 MG/3 ML INH INHALATION (16:39)
[2023-09-30] MEDS: IPRATROPIUM BR 0.02% INH SOLN 0.5 MG/2.5 ML VIAL INHALATION (16:39)
--- NOTE | 2023-09-30 16:49 | WPDCARDPROC ---
Cardiac Cath Procedure Note Date of procedure:: 09/30/23 Performing physician:: CATHETERIZATION LABORATORY REPORT Procedure Date: 09/30/2023 Review Engineer: Shannon Davis M.D., [facility]? Referring Physician: Clfi Siegel M.D. ([facility]) ? Anesthesia: Patient already intubated and on Propofol drip prior to arrival to airport maintenance laborer. Procedure start time: 13:39. Procedure end time: 14:30 Total procedure time: 51 minutes Versed and Fentanyl were ordered for additional sedation. Total of Versed 2mg and Fentanyl 50mcg were administered by the Synoptic Meteorologist MUKUL Portillo. Pre-op Diagnosis: Acute Coronary Syndrome Post-op Diagnosis: 1. There is significant distal left main disease of 90-99%. The LM disease extends into the LAD, resulting in a 90% ostial stenosis of the LAD. There is slow flow in the LAD. The LAD appears to have diffuse disease throughout, but this may be from underfilling of the vessel from the LM/ostial LAD disease. The diagonal branch has a 70-80% stenosis in the mid portion. 2. Elevated left ventricular end-diastolic pressure of 26mmHg. LVEF appears to be severely reduced. There is hypokinesis of the anterobasal, anterolateral wall. The apex appears akinetic. 3. Successful placement of IABP. Procedure(s): 1. Moderate sedation 2. Ultrasound-guided access of the right common femoral artery 3. Coronary angiography 4. Left heart cath 5. Left ventricular angiogram 6. IABP placement Access Site: Right common femoral artery Brief History and Clinical Indications: Patient is a 68 year old male with tobacco dependence and hypertension who presented with chest pain ongoing since yesterday, along with shortness of breath. EKG obtained upon ER arrival showed ST elevation in AVR and V1 with diffuse ST depressions. laboratory chief was activated. Patient was noted to be quite hypoxic into the 80s. CTA negative for PE or dissection. Given ongoing chest pain and EKG findings, we decided to urgently take patient to airport maintenance laborer. Patient had difficulty laying flat for CT scan due to shortness of breath, so he was electively intubated for cardiac cath. Findings: LEFT HEART CATHETERIZATION FINDINGS: 1. Left main: There is significant distal left main disease of 90-99%, which extends into the LAD. 2. Left anterior descending: Heavy calcifications seen in the proximal LAD. The LM disease extends into the LAD, resulting in a 90% ostial stenosis of the LAD. There is slow flow in the LAD. The LAD appears to have diffuse disease throughout, but this may be from underfilling of the vessel from the LM/ostial LAD disease. The diagonal branch has a 70-80% stenosis in the mid portion. 3. Left circumflex: The left circumflex artery is co-dominant. Heavy calcifications noted in proximal LCX. The LCX has mild disease in the mid portion. The OM branch has moderate ostial stenosis. No significant obstructive disease in LCX/OM system. 4. Right coronary artery: The RCA is a co-dominant vessel. The RCA has mild-moderate diffuse disease. The ostium of the RPDA has mild-moderate disease. 5. Left ventricle: A. End-diastolic pressure 26mmHg. B. LV gram: LVEF appears to be severely reduced. There is hypokinesis of the anterobasal, anterolateral wall. The apex appears akinetic. C. No significant gradient across aortic valve on catheter pullback. Description of Procedure: Patient transferred to airport maintenance laborer room. Prepped and draped in usual sterile fashion. 2% lidocaine in right groin area. Micropuncture needle used to access right common femoral artery with Seldinger technique under fluoroscopic and ultrasound guidance. J wire advanced, micropuncture cannula placed. Right iliofemoral angiogram performed, access confirmed and micropuncture cannula exchanged for 6-FR sheath. 5F FL 4 diagnostic catheter was advanced to the aortic root. Invasive pressures from catheter at this time showed SPB in the 60s (system was zeroed again and the catheter was flushed again, and pressures r
[2023-09-30] MEDS: PROPOFOL IV EMULSION 100 ML 26.37 MG IV CONT (16:51)
[2023-09-30] MEDS: NOREPINEPHRINE 8 MG/D5W 250 ML 8 MG/250 ML BAG 33.75 MG IV CONT (16:52)
[2023-09-30 17:12] LABS: MRSA (PCR) NOT DETECTED (NOT DETECTE)
--- NOTE | 2023-09-30 17:56 | PC.NURSE ---
Fentanyl, versed, propofol, heparin, levophed gtts all sent with air-evac for transfer.
--- NOTE | 2023-10-06 17:26 | PM.TDS ---
Transfer Discharge Sum: Prov Provider Date of admission: 09/30/23 13:13 Primary care physician: Sonny Ceballos, MD Admitting clinician: Shannon Davis MD Attending physician on admission: Shannon Davis Consults: 09/30/23 Consult to Physician Routine Comment: Consulting Provider: Anabella Castilol Reason for consultation: respiratory failure Has provider been notified: Yes Attending physician on discharge: Shannon Davis Discharging clinician: Shannon Davis Anticipated date of transfer: 09/30/23 Receiving physician/facility: [facility] DS: Admitting Diagnosis Discharge Date 09/30/23 Admitting Diagnosis Acute Coronary Syndrome Transfer Discharge Sum: Med Medications Active and Home Medications: Home Medications amlodipine 10 mg tablet 10 mg PO DAILY 09/30/23 [History Confirmed 09/30/23] lisinopril 40 mg tablet 40 mg PO DAILY 09/30/23 [History Confirmed 09/30/23] metoprolol succinate 100 mg tablet,extended release 24 hr 100 mg PO DAILY 09/30/23 [History Confirmed 09/30/23] pantoprazole 40 mg tablet,delayed release 40 mg PO BID 09/30/23 [History Confirmed 09/30/23] Transfer Discharge Sum: Hosp Hospital Course Hospital course: EKG obtained upon ER arrival showed ST elevation in AVR and V1 with diffuse ST depressions. Given ongoing chest pain and EKG findings, we decided to urgently take patient to lab support technician. Patient had difficulty laying flat for CT scan due to shortness of breath, so he was electively intubated for cardiac cath. Coronary angiogram showed severe distal left main disease extending into the LAD, with slow flow in the LAD. LVEDP elevated at 26mmHg. LV angiogram shows severely reduced LVEF with hypokinesis of the anterobasal/anterolateral wall, akinesis of the apex. IABP was placed. Given coronary angiogram findings, recommend CTS evaluation for CABG. Discussed with CT Surgeon Dr. Lujan at [facility], patient accepted to the [facility] ICU. Time Spent with Patient Time attestation: Total time spent providing and/or coordinating transfer services: Exam Narrative: See H&P noted dated 09/30/2023
== END 2023-09-30 18:17 | disposition short-term general hospital (02) | DRG 270 ==
LOC: ANHED 13:15 → ANHICU 13:17
PROVIDERS: Internal Medicine; Admitting Provider Internal Medicine; Emergency Provider Emergency Medicine; PCP Internal Medicine; Visit Provider Internal Medicine
PROC: 4A023N7 Measurement of Cardiac Sampling and Pressure, Left Heart, Percutaneous Approach (ICD-10-PCS; CPT 93452; principal; 2023-09-30 13:20)
PROC: 4A023N7 Measurement of Cardiac Sampling and Pressure, Left Heart, Percutaneous Approach (ICD-10-PCS; 2023-09-30 13:20)
DX: I21.3 ST elevation (STEMI) myocardial infarction of unspecified site (principal); J96.00 Acute respiratory failure, unspecified whether with hypoxia or hypercapnia; U07.1 COVID-19; R57.0 Cardiogenic shock; E78.2 Mixed hyperlipidemia; F17.210 Nicotine dependence, cigarettes, uncomplicated; I10 Essential (primary) hypertension; J44.9 Chronic obstructive pulmonary disease, unspecified
CPT/HCPCS: 31500; 33967; 36415; 36600; 71275; 80053; 80061; 82375; 82805; 83050; 83605; 83690; 84478; 84484; 85025; 85610; 85730; 86850; 86900; 86901; 87637; 87641; 93005; 93458; 94002; 94640; 99291; A9270; C1887; C1894; C9113; J0330; J1644; J2250; J2704; J3010; J7040; J7060; L1830; Q9967

== ENCOUNTER 2024-03-09 12:30 | Outpatient (RCR) | payer MEDICARE, SELFPAY ==
[2023-11-26 15:39] VITALS: PULSE 86
== END 2024-03-09 15:18 | disposition home or self-care (01) ==
LOC: ANHCPREHAB 12:30
PROVIDERS: PCP Internal Medicine; Visit Provider Internal Medicine
DX: Z95.1 Presence of aortocoronary bypass graft (principal)
CPT/HCPCS: 93798

== ENCOUNTER 2025-06-07 10:51 | Outpatient (CLI) | payer MEDICARE, SELFPAY ==
--- OUTSIDE RECORDS SUMMARY | 2018-06-27 08:54 | XMS_ITS | Continuity of Care Document ---
Author Organization [facility] Address [id number] [place] [address] [address] [place] [address] Phone Care Team Providers Care Cardiology Technologist Name Role Phone Cassius PULIDO, Luis Miguel Unavailable Unavaila ble Procedures Procedure Date CATARACT SURG W/IOL, 1 STAGE CATARACT SURG W/IOL, 1 STAGE NON MED NEC IOL PREOP EYE EXAM, NEW PATIENT OPHTHALMIC BIOMETRY OPHTHALMIC BIOMETRY Advance Directives Directive Yes / No Effective Date File Name No Information Encounters Encounter Description Practice Location Reason(s) For Visit Diagnoses Date Provider Providers Copied on Encounter [facility], [id number] [place] [address] 201, [place], [place], [id number], [place] tel:[phone] [facility] [place] [facility] No Information 8 Cassius Bolanos. [address], [address], [place], [place], [id number], [place]. tel:[phone] Referring Provider: Luis Miguel montes de oca, [address], [place], [address] . tel:[phone] [facility], [id number] [place] [address] 201, [place], [place], [id number], [place] tel:[phone] [facility] No Information 8 Cassius Bolanos. [address], [address], [place], [place], [id number], [place]. tel:[phone] Referring Provider: Luis Miguel montes de oca, [address], [place], [address] . tel:[phone] [facility], [address] [place] [address], [id number], tel:[phone] [facility] No Information 8 Cassius Luis Miguel. [address], [address], [place], [id number], [place]. tel:[phone] Referring Provider: Luis Miguel montes de oca, [address], [place], [address] . tel:[phone] [facility], [address] [place] [address], [id number], tel:[phone] [facility] [place] [facility] No Information 8 Ludwigishnasjanie Luis Miguel. [address], [address], [place], [id number], [place]. tel:[phone] Referring Provider: Luis Miguel montes de oca, [address], [place], [address] . tel:[phone] [facility], [address] [place] [address], [id number], tel:[phone] [facility] No Information 7 Krishnasamy Luis Miguel. [address], [address], [place], [id number], [place]. tel:[phone] Referring Provider: Luis Miguel montes de oca, [address], [place], [address] . tel:[phone] Family History Family Member Type Diagnosis Age At Onset No Information Payers Payer name Insurance type Covered green party ID Authoriza titerrence(s) [facility] [id number] Social History Type Description Quantity Date Captured Comments Sex Male Smoking Status No Information Chief Complaint And Reason For Visit No Information Reason For Referral Reason For Referral No Information History Of Present Illness Encounter Date Complaint History Of Prese nt Illness No Information Functional Status Date Functional Assessmen t No Information Instructions Date Instruction Additional Infor mation No Information Assessments Type Assessment Date No Information Patient Care Teams Name Effective Dates (start - stop) Status Members No Information
--- NOTE | ~2025-06-07 | US_ITS ---
EXAMINATION: US carotid duplex BI DATE: 06/07/2025 12:29 INDICATION: Carotid artery stenosis TECHNIQUE: Grayscale, color Doppler, and pulsed Doppler images of the cervical carotid arteries were obtained. The degree of vessel stenosis is placed in one of the following categories: normal, <50%, 50-69%, >=70% but less than near- occlusion, near-occlusion, or total occlusion. Note that percent stenosis relative to normal distal artery lumen diameter is indirectly measured from velocity measurements as described by Sameer, et al. Radiology 2003; 229:340-346. COMPARISON: None. FINDINGS: RIGHT: The right common carotid artery (CCA) peak systolic velocity (PSV) is 59 cm/s. The right internal carotid artery (ICA) PSV is 149 cm/s. The right ICA end- diastolic velocity (EDV) is 44 cm/s. The right ICA/CCA PSV ratio is 2.5. Grayscale and color Doppler images yield an estimate of 50-69% diameter redu ction from plaque in the ICA. The external carotid artery (ECA) PSV is 200 cm/s. There is antegrade flow in the right vertebral artery. LEFT: The left CCA PSV is 72 cm/s. The left ICA PSV is 190 cm/s. The left ICA EDV is 71 cm/s. The left ICA/CCA PSV ratio is 2.6. Grayscale and color Doppler images yield an estimate of 50-69% diameter reduction from plaque in the ICA. The ECA PSV is 58 cm/s with mildly delayed systolic upstroke. There is antegrade flow in the left vertebral artery. IMPRESSION: 1. 50-69% stenosis in the right internal carotid artery. 2. 50-69% stenosis in the left internal carotid artery. Reviewed, dictated and finalized at location A.
--- OUTSIDE RECORDS SUMMARY | 2025-06-07 12:02 | XMS_ITS | Clinical Summary ---
Author Organization [facility] Address [address] [place] [address] Care Team Providers Care Ob/Gyn Name Role Phone Sonny Ceballos MD Primary Care Provider Adria Lujan MD Unavailable [phone] Shannon Davis MD Unavailable [phone] Miscellaneous, Not In File Unavailable Unava ilable Allergies No known active allergies Medications acetaminophen 500 mg capsule Take 2 capsules (1,000 mg total) by mouth every 6 (six) hours as needed for pain 4 Active clopidogreL (PLAVIX) 75 mg tablet Take 1 tablet (75 mg total) by mouth daily 90 tablet 3 4 06/21/20 25 Active metoprolol XL (TOPROL-XL) 25 mg extended release tablet Take 1 tablet (25 mg total) by mouth daily 90 tablet 3 4 Active apixaban (ELIQUIS) 5 mg tabletIndications :atrial fibrillation Take 1 tablet (5 mg total) by mouth 2 (two) times a day 180 tablet 3 4 06/21/20 25 Active atorvastatin (LIPITOR) 80 mg tablet Take 1 tablet (80 mg total) by mouth nightly 90 tablet 3 4 06/21/20 Active Active Problems Problem Noted Date Diagnosed Date Mixed hyperlipidemia 06/26/2024 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) 11/05/2023 Hx of CABG 11/05/2023 S/P aortic valve replacement 11/05/2023 Postoperative atrial fibrillation 11/05/2023 Hypertension 11/05/2023 Tobacco dependence 11/05/2023 Coronary artery disease invo [place] coronary artery of creek heart without angina pectoris 10/01/2023 Resolved Problems Problem Noted Date Diagnosed Date Resolved Date Coronary artery disease invo [place] coronary artery of creek heart without angina pectoris 02/23/2024 12/28/2024 Coronary artery disease due to calcified coronary lesion 10/04/2023 12/28/2024 Cardiogenic shock 10/02/2023 12/28/2024 ACS (acute coronary syndrome) 09/30/2023 12/28/2024 Surgical History Surgery Date Site/Laterality Comments CATARACT EXTRACTION CORONARY ARTERY BYPASS GRAFT 10/04/2023 CARDIAC VALVE REPLACEMENT 10/04/2023 Medical History Medical History Date Comments Heart disease 09/30/2023 Hypertension Chronic bronchitis (HCC) Family History Medical History Relation Name Comments COPD Brother 1 Steve Gracielatorres Heart attack Brother 1 Steve Mccallcolbytorres COPD Brother 2 Davi Gracielatorres Hypertension Brother 2 Davi Mccallcolbytorres COPD Brother 3 Lebron Mccallcolbytorres Arthritis Mother Renée Flores Hearing loss Mother's Sister Ghassan Mark Miscarriages / Stillbirths Sister Diana cohn Relation Name Status Comments Brother 1 Steve Owensrich Brother 2 Davi Owensrich Brother 3 Lebron Stefanyttrich Mother Renée Flores Mother's Sister Ghassan Mccallcolbytorres Sister Diana cohn Social History Tobacco Use Types Packs/Day Years Used Date Smoking Tobacco: Former Cigarettes 0.8 50.1 0 08/09/1973 - 09/30/2023 Smokeless Tobacco: Never Tobacco Cessation:Counseling Given: Not Answered [facility] Utilities Answer Date Recorded In the past 12 months has e electric, gas, oil, or water company threatened to shut off services in your home? No 10/01/2023 Social Connection and Isolation Panel Answer Date Recorded In a typical week, how many times do you talk on the phone with family, friends, or neighbors? More than three times a week 10/01/2023 How often do you get togethe r with friends or relatives? More than three times a week 10/01/2023 How often do you attend chur ch or yazdanism services? Never 10/01/2023 Do you belong to any clubs o r organizations such as hindu groups, unions, fraternal or athletic groups, or school groups? No 10/01/2023 How often do you attend meet ings of the clubs or organizations you belong to? Never 10/01/2023 Are you , , di vorced, , never , or living with a partner? 10/01/2023 Overall Financial Resource Strain (CARDIA) Answe r Date Recorded How hard is it for you to pa y for the very basics like food, housing, medical care, and heating? Not very hard 10/01/2023 Hunger Vital Sign Answer Date Recorded Within the past 12 months, y ou worried that your food would run out before you got the money to buy more. Never true 10/01/19 24 Within the past 12 months, t he food you bought just didn't last and you didn't have money to get more. Never true 10/01/2023 PRAPARE - Transportation Answer Date Re corded In the past 12 months, has l ack of transportation kept you from medical appointments or from getting medications? No 09/10 In the past 12 months, has l ack of transportation kept you from meetings, work, or from getting things needed for daily living? No 10/01/2023 Housing Stability Vital Sign Answer Alfredo e Recorded In the last 12 months, was t here a time when you were not able to pay the mortgage or rent on time? No 10/01/2023 In the last 12 months, how many places have you lived? 1 10/01/2023 In the last 12 months, was t here a time when you did not have a steady place to sleep or slept in a jail (including now)? No 10/01/2023 Sex and Gender Information Value Date Recorded Sex Assigned at Not on file Legal Sex Male 2:30 PM [employer] Gender Identity Not on file Sexual Orientation Not on file Obstetrics History Last Filed Vital Signs Vital Sign Reading Time Taken Comments Blood Pressure 140/76 12/28/2024 11:02 AM CDT Pulse 82 12/28/2024 11:02 AM CDT Temperature 36.5 C (97.7 F) 02/11/2024 11:41 AM CDT Respiratory Rate 16 11/09/2024 10:40 AM CDT Oxygen Saturation 96% 12/28/2024 11:02 AM CDT Inhaled Oxygen Concentration - - Weight 83.5 kg (184 lb) 12/28/2024 11:02 AM CDT Height 177.8 cm (5' 10) 12/28/2024 11:02 AM CDT Body Mass Index 26.4 12/28/2024 11:02 AM CDT Plan of Treatment Health Maintenance Due Date Last Done Comments Colon Cancer Screening-Colonoscopy 1955 Depression Screening 1955 Hepatitis C Screening 1955 Prostate Cancer Screening-PSA 1955 DTaP/Tdap/Td Vaccine (1 - Tdap) 1966 Hepatitis B Screening 1973 Lung Cancer Screening 2005 Zoster Vaccine (1 of 2) 2005 Abdominal Aortic Aneurysm (AAA) Screen 2020 Well Visit 65+ 2020 Fall Risk Assessment 10/10/2024 10/11/2023 Influenza Vaccine (#1) 2025 Pneumococcal vaccine 65+ Completed 03/19/2022, 01/07 Medical Devices Implanted Type Area Black And White Printer Operator Device Identifier Shelf Expiration Date Model / Serial / Lot Atricure Device Closure Atriclip Nitinol Titanium Polyester 45 D L45mm L6cm Flexible Shaft Plunger Counter Supervisor Left Atrial Appendage Exclusion System [id number] - [id number] Implanted:Qty: 1 on 10/04/2023 by Adria Lujan MD at [facility] Clip N/A: Heart Atricure 01/07/2026 [id number] / / [id number] [employer] Inspiris Resilia Leaflet Aortic Valve 23mm [id number] - [id number] - [id number] Implanted:Qty: 1 on 10/04/2023 by Adria Lujan MD at [facility] Prosthetic Valve N/A: Heart [employer] 06/21/2027 [id number] / [id number] / Insurance MEDICARE ADVANTAGE Advance Directives For more information, please contact: [phone] * Full Code (Latest Code Status on File) Date Activated Date Inactivated Comments 09/30/2023 7:28 PM 10/11/2023 8:50 PM Care Teams Ob/Gyn Relationship Specialty Start Date End Date Sonny Ceballos MD [address] [facility] DE[facility] [place] [address] PCP - General Internal Medicine 10/01/23 Adria Lujan MD [address] [facility] [place] [address] Surgeon Cardiothoracic Surgery 10/11/23 [place] [address] [place] [address] [place] [address] Consulting Physician Interventional Cardiology 10/11/23 Miscellaneous, Not In File 10/11/23
== END 2025-06-07 10:52 | disposition home or self-care (01) ==
PROVIDERS: PCP Internal Medicine; Visit Provider Internal Medicine
DX: I65.23 Occlusion and stenosis of bilateral carotid arteries (principal)
CPT/HCPCS: 93880